=== PATIENT | female | born 1945 | race Caucasian/White ===

== ENCOUNTER → 2017-12-29 | Outpatient (CLI) | payer MEDICARE ==
[~2017-12-29] MED LIST: ANOTHER DIABETIC MED; AVINZA60 MG PO; AVINza PO; CATAPRES0.2 MG PO; COLACE100 MG PO; GLUCOPHAGE500 MG PO; METFORMIN HCL1000 MG PO; MOBIC7.5 MG PO; NEURONTIN100 MG PO; OXYCODONE5 MG PO; SERTRALINE HCL100 MG PO; SIMVASTATIN40 MG PO; [UNRECOGNIZED DRUG - REMARK]
== END | disposition home or self-care (01) ==
LOC: CDC 13:26
DX: Z01.810 Encounter for preprocedural cardiovascular examination (principal); G56.01 Carpal tunnel syndrome, right upper limb; R94.31 Abnormal electrocardiogram [ECG] [EKG]
CPT/HCPCS: 93000